=== PATIENT | female | born 1985 | race Caucasian/White ===

== ENCOUNTER 2017-10-05 06:27 | Day surgery (SDC) | payer BC ==
[2017-10-05 07:20] VITALS: BP 108/69; TEMP 98.2; BMI 34.0
[2017-10-05 08:33] LABS: FFN Internal QC Analyzer PASS (PASS); FFN Internal QC Cassette PASS (PASS); Fetal Fibronectin Negative (Negative)
--- NOTE | 2017-10-05 11:23 | PRG ---
DATE OF SERVICE: 10/05/2017 PRIMARY OB: Dr. Fabiola Medina. CHIEF COMPLAINT: Abdominal pains. HISTORY OF PRESENT ILLNESS: The patient is a 32-year-old G4, P2 female with an intrauterine pregnanc y of a di/di twin gestation at 28 weeks and 6 days. The patient presented to Labor and Delivery afte r waking up with what she believes are uterine contractions that seemed to intensify little bit into the morning. She began feeling them about every 3 minutes and came for further evaluation. The dae ent reports since arriving to Labor and Delivery, her contractions seem to have abated, and she is no t noticing them like before. The patient denies any recent illness, fever, fall, headache, chest carter n, shortness of breath, nausea, vomiting, diarrhea, constipation, any new rashes. She denies a gillette e in discharge, urinary urgency, or frequency. PAST MEDICAL HISTORY: Negative. PAST SURGICAL HISTORY: She has had wisdom teeth. She has had ankle surgery. She has had a correcti on on a KENALOG reaction. ALLERGIES: KENALOG and ERYTHROMYCIN. CURRENT MEDICATIONS: vitamins, iron, and calcium. SOCIAL HISTORY: Denies drug, alcohol, or tobacco use. OBSTETRIC HISTORY: She has had 2 term deliveries and 1 miscarriage. OB LABS: RPR nonreactive, hepatitis B surface antigen nonreactive, HIV nonreactive. GC chlamydia, r ubella is immune. Her 3-hour glucose tolerance test fasting was 86, one-hour is 156, two-hour is 158 , three-hour is 108. REVIEW OF SYSTEMS: Per HPI. PHYSICAL EXAMINATION: VITAL SIGNS: Blood pressure is 108/69, heart rate of 104, respiratory rate of 18, satting 97% on vargas m air, and temperature 98.2. GENERAL: She appears to be in no acute distress. She is alert and oriented, and cooperative and ple asant to interact with. HEAD: Normocephalic, atraumatic. LUNGS: Clear to auscultation bilaterally. HEART: Regular rate and rhythm. ABDOMEN: Soft, gravid, nontender to palpation. No suprapubic tenderness. No upper quadrant tendern ess. She has no CVA tenderness. EXTREMITIES: Nontender, nonedematous. GENITOURINARY: Exam has been deferred at this time. heart tracing performed for abdominal pain, interpreted by Dr. Pulido, duration is approximate ly 2 hours, baseline for baby A is noted to be 130s with moderate long-term variability, positive acc elerations, no decelerations, and baby B was noted to be in the 130s with moderate long-term variabil ity, positive accelerations. The tocometer does show irritability and contractions early on, appears to be about every 2-5 minutes with a lot of irritability, and toward the end of her stay, her spacin g out was about every 10 minutes, again not felt nearly as intense or frequent as she has been experi encing. fibronectin test was collected and found to be negative. ASSESSMENT AND PLAN: The patient is a 32-year-old female with an intrauterine of a twin ge station at [address] Medina, her primary OB, has instituted outpatient steroids with her first dose given yesterday, second dose due this morning. The patient has a negative fibro nectin, has reassuring heart tracing for both babies and is getting close followup. Given the overall picture and her much reduced risk of labor in the next couple of weeks, the patient has been discharged home with instructions to return if her contractions intensify. She has been counseled to keep her appointment with Dr. Medina as scheduled.
== END 2017-10-05 09:45 | disposition home or self-care (01) ==
LOC: L&D/OP 06:27
PROVIDERS: ATTEND Family Medicine
DX: O47.03 False labor before 37 completed weeks of gestation, third trimester (principal); O30.003 Twin pregnancy, unspecified number of placenta and unspecified number of amniotic sacs, third trimester; Z3A.28 28 weeks gestation of pregnancy; Z98.890 Other specified postprocedural states; Z79.899 Other long term (current) drug therapy; Z88.1 Allergy status to other antibiotic agents; Z88.8 Allergy status to other drugs, medicaments and biological substances
CPT/HCPCS: 82731

== ENCOUNTER 2017-11-29 11:03 | Day surgery (SDC) | payer BC ==
[2017-11-29 11:42] VITALS: BMI 36.1
[2017-11-29 11:43] VITALS: BP 118/66; TEMP 99.7
== END 2017-11-29 13:25 | disposition home or self-care (01) ==
LOC: L&D/OP 11:03
PROVIDERS: ATTEND Family Medicine
DX: Z36.89 Encounter for other specified antenatal screening (principal); Z88.1 Allergy status to other antibiotic agents; Z79.899 Other long term (current) drug therapy
CPT/HCPCS: 59025; 99282

== ENCOUNTER 2017-12-01 05:36 | Inpatient (IN) | payer BC, OTHER ==
[2017-12-01] MEDS ORDERED: CEFAZOLIN/Water 2 GM/20 ML SYRINGE SLOW IVP SCH (05:59)
[2017-12-01] MEDS ORDERED: Promethazine HCl 25 MG/ML VIAL IM PRN (05:59)
[2017-12-01] MEDS ORDERED: Bicitra 30 ML UDCUP PO SCH (05:59)
[2017-12-01 06:30] VITALS: BMI 36.1
[2017-12-01] MEDS: Lactated Ringer's 1,000 ML IV SCH ×4 (06:31→23:54)
[2017-12-01 06:49] LABS: Hemoglobin 13.1 g/dL (12.0-16.0); Mean Corpuscular HGB CONC 34.4 g/dL (32.0-36.0); Mean Corpuscular Hemoglobin 32.4 pg (27.0-31.0); Mean Corpuscular Volume 94.2 fl (81.0-99.0); Mean Platelet Volume 7.6 fL (7.4-10.4); Platelet Count 193 thou/uL (130-400); RBC Distribution Width 17.3 % (11.5-14.5); Red Blood Cell (RBC) Count 4.03 mill/uL (4.20-5.40); White Blood Cell (WBC) Count 8.8 thou/uL (4.8-10.8)
[2017-12-01] MEDS ORDERED: ePHEDrine/0.9% NaCl/PF SYRINGE 50 mg/10 ml ONE (07:18)
[2017-12-01] MEDS ORDERED: Ketorolac Tromethamine 30 MG/ML VIAL ONE (07:18)
[2017-12-01] MEDS ORDERED: Ondansetron HCl/PF 4 MG/2 ML Vial ONE (07:18)
[2017-12-01] MEDS ORDERED: Dexamethasone 4 mg/ml Vial ONE (07:18)
[2017-12-01] MEDS ORDERED: PHENYLEPHRINE-NS 100 MCG/ML 10 ML SYRINGE ONE (07:18)
[2017-12-01] MEDS ORDERED: Morphine PF 1 MG/ML SYR ONE (07:18)
[2017-12-01] MEDS ORDERED: Oxytocin 10 UNITS/ML VIAL ONE (07:18)
[2017-12-01 07:29] LABS: HBSAg Index 0.19 S/CO (0-0.99); Hep B Surf Ag Non-Reactive S/CO (NonReactive); Syphilis Antibody Nonreactive (Nonreactive); Syphilis Antibody Index 0.04 S/CO (<1.00 Non-Reactive)
[2017-12-01] MEDS ORDERED: LR / Pitocin 40 units/1000 ml 1,000 ML IV PRN (07:46)
[2017-12-01] MEDS ORDERED: Acetaminophen/Codeine 30-300mg Tablet PO PRN (07:46)
[2017-12-01] MEDS ORDERED: HYDROcodone/Acetaminophen 5/325 mg Tablet PO PRN (07:46)
[2017-12-01] MEDS ORDERED: Ibuprofen 800 MG TAB PO PRN (07:46)
[2017-12-01] MEDS ORDERED: Lidocaine 1% (PF) 30 ML VIAL SC PRN (07:46)
[2017-12-01] MEDS ORDERED: LR 500 ML/Oxytocin 10 units 500 ML IV SCH (08:00)
[2017-12-01] MEDS ORDERED: Penicillin G Potassium 5 MILL.UNITS in Sodium Chloride 0.9% 100 ML IVPB SCH (08:00)
[2017-12-01] MEDS: LR 500 ML/Oxytocin 10 units 500 ML IV SCH ×2 (09:28→22:11)
[2017-12-01] MEDS: Penicillin G 2.5 MILL.units 2.5 MILL.UNITS in Premix Bag 1 BAG IVPB SCH ×3 (12:45→21:10)
[2017-12-01] MEDS ORDERED: DISCONTINUE ALL PREVIOUS NARCOTICS FS SCH (16:30)
[2017-12-01] MEDS: Bupivacaine 0.5% 20 ML, Fentanyl 400 MCG in Sodium Chloride 0.9% 72 ML EPIDURAL SCH (18:42)
[2017-12-01] MEDS ORDERED: Naloxone HCl 0.4 mg/ml Vial IVP PRN (18:52)
[2017-12-01] MEDS ORDERED: Lactated Ringer's 500 ML IV PRN (18:52)
[2017-12-01] MEDS ORDERED: ePHEDrine/0.9% NaCl/PF SYRINGE 50 mg/10 ml SLOW IVP PRN (18:52)
[2017-12-01] MEDS ORDERED: Eucerin (Mineral Oil/Petrolatum,White) 30 gm Jar TOP PRN (18:52)
[2017-12-01] MEDS ORDERED: Acetaminophen 325 MG TAB PO PRN (18:52)
[2017-12-01] MEDS ORDERED: Communication Order-Pharmacy FS SCH (19:00)
[2017-12-01] MEDS ORDERED: Fentanyl 4mcg/Marcaine 0.1% Cassette 100 ML EPIDURAL SCH (19:00)
[2017-12-01] MEDS: Ondansetron HCl/PF 4 MG/2 ML Vial IVP PRN (21:27)
[2017-12-02] MEDS: Bupivacaine 0.5% 20 ML, Fentanyl 400 MCG in Sodium Chloride 0.9% 72 ML EPIDURAL SCH (00:20)
[2017-12-02] MEDS ORDERED: LR / Pitocin 40 units/1000 ml 1,000 ML ONE (00:59)
--- NOTE | 2017-12-02 01:02 | PDOC.EVN ---
Event Note - Event Note Event Note: @2220: Delivery Assist for sono confirmation of Twin B Called to OR in L&D as the patient and Dr Nicole were awaiting Twin A delivery. I was requested to place sono on mother after Twin A to assess twin B position. of Twin A at approx 0027, vigorous male...Cephalic by Dr Everardo Nicole. I placed a sono on mother's abdomen and confirmed twin B was cephalic. I was present in room until Twin B delivered via at approx 0054...vigorous male. AROM by Dr Nicole just prior to . I left the OR as all were stable, with Dr Nicole present, awaiting placental delivery. No complications with deliveries of the two male newborns. NICU in room.
[2017-12-02] MEDS: Ondansetron HCl/PF 4 MG/2 ML Vial IVP PRN (01:25)
[2017-12-02] MEDS: Penicillin G 2.5 MILL.units 2.5 MILL.UNITS in Premix Bag 1 BAG IVPB SCH (01:28)
[2017-12-02] MEDS ORDERED: LR / Pitocin 40 units/1000 ml 1,000 ML IV SCH (01:40)
[2017-12-02] MEDS ORDERED: Benzocaine/Menthol 20-0.5% 60 ML CAN TOP PRN (01:40)
[2017-12-02] MEDS ORDERED: traMADol HCl 50 MG TAB PO PRN (01:40)
[2017-12-02] MEDS ORDERED: Milk Of Magnesia 30 ML UDCUP PO PRN (01:40)
[2017-12-02] MEDS ORDERED: Lanolin Ointment 7 GM TUBE TOP PRN (01:40)
[2017-12-02] MEDS ORDERED: HYDROcodone/Acetaminophen 5/325 mg Tablet PO PRN (01:40)
[2017-12-02] MEDS ORDERED: Preparation H Ointment 28 GM TUBE PR PRN (01:40)
[2017-12-02] MEDS ORDERED: Acetaminophen/Codeine 30-300mg Tablet PO PRN (01:40)
[2017-12-02] MEDS ORDERED: Bisacodyl 10 MG SUPP PR PRN (01:40)
[2017-12-02] MEDS ORDERED: Ondansetron HCl/PF 4 MG/2 ML Vial IVP PRN (01:40)
[2017-12-02] MEDS ORDERED: diphenhydrAMINE 25 MG CAP PO PRN (01:40)
[2017-12-02] MEDS ORDERED: Misoprostol 200 MCG TAB ONE (01:41)
--- NOTE | 2017-12-02 01:52 | OP ---
DATE OF SURGERY: 12/02/2017 PREOPERATIVE DIAGNOSIS: A 37-week intrauterine with diamniotic-dichorionic twins. POSTOPERATIVE DIAGNOSES: A 37-week intrauterine with diamniotic-dichorionic twins, status post delivery. PROCEDURE: Normal spontaneous vaginal delivery. SURGEON: Dr. Fabiola Medina. ANESTHESIA: Epidural. COMPLICATIONS: No complications. Patient with epidural in place laboring without complications with Pitocin induction. Patient became complete, was taken to the operating room for planned vaginal delivery. PROCEDURE IN DETAIL: Patient was placed in the dorsal lithotomy position. Perineum was prepped and draped. Noted normal spontaneous vaginal delivery of a viable male from vertex presentation w ithout difficulty. Infant breathed and cried spontaneously. Cord was clamped and cut after approxim ately 1 minute noted that there was minimal bleeding. Cord blood was obtained and after approximatel y 20 minutes, artificial rupture of membranes for twin B with clear fluid. Noted normal spontaneous vaginal delivery of a viable male infant from vertex presentation. breathed and cried spontan eously. Cord was clamped and cut. After approximately 1 minute, baby was immediately placed on the abdomen for skin to skin and cord blood was obtained from the second-umbilical cord. A cord clamp wa s placed on the cord for baby A, and the placenta delivered spontaneously and appeared intact. There was minimal bleeding. There were no lacerations. Fundus was firm. Estimated blood loss 300 mL. B judy A and baby B noted viable; baby A, Apgars 8 at one minute, 9 at five minutes; baby B, Apgars 8 at one minute, 9 at five minutes taken to allow to room in with mom and patient taken to recovery.
[2017-12-02] MEDS ORDERED: Misoprostol 200 MCG TAB PR SCH (02:00)
[2017-12-02] MEDS: Ibuprofen 800 MG TAB PO SCH ×3 (05:14→21:21)
[2017-12-02 05:49] LABS: Hemoglobin 13.5 g/dL (12.0-16.0); Mean Corpuscular Hemoglobin 32.3 pg (27.0-31.0); Mean Corpuscular Volume 95.1 fl (81.0-99.0); Mean Platelet Volume 7.9 fL (7.4-10.4); Platelet Count 163 thou/uL (130-400); RBC Distribution Width 17.2 % (11.5-14.5); Red Blood Cell (RBC) Count 4.17 mill/uL (4.20-5.40); White Blood Cell (WBC) Count 12.5 thou/uL (4.8-10.8)
[2017-12-02] MEDS: Ferrous Sulfate 325 MG TAB PO SCH ×2 (08:46→16:38)
[2017-12-02] MEDS: Docusate Calcium (SURFAK) 240 MG CAP PO SCH ×2 (09:11→21:20)
[2017-12-02] MEDS: Prenatal Vitamin 1 TAB PO SCH (09:20)
[2017-12-03] MEDS: Ibuprofen 800 MG TAB PO SCH ×2 (05:52→13:39)
[2017-12-03 08:06] VITALS: BP 112/68; TEMP 98.3
[2017-12-03] MEDS: Docusate Calcium (SURFAK) 240 MG CAP PO SCH (09:16)
[2017-12-03] MEDS: Prenatal Vitamin 1 TAB PO SCH (09:18)
[2017-12-03] MEDS: Ferrous Sulfate 325 MG TAB PO SCH (09:19)
== END 2017-12-03 15:15 | disposition home or self-care (01) | DRG 775 ==
LOC: L&D 05:36 → 3SW 12-02 03:45
PROVIDERS: ADMIT Family Medicine; ATTEND Family Medicine
PROC: 3E033VJ Introduction of Other Hormone into Peripheral Vein, Percutaneous Approach (ICD-10-PCS; 2017-12-01)
PROC: 10E0XZZ Delivery of Products of Conception, External Approach (ICD-10-PCS; principal; 2017-12-02)
PROC: 10907ZC Drainage of Amniotic Fluid, Therapeutic from Products of Conception, Via Natural or Artificial Opening (ICD-10-PCS; 2017-12-02)
DX: O30.043 Twin pregnancy, dichorionic/diamniotic, third trimester (principal); Z37.2 Twins, both liveborn; Z3A.37 37 weeks gestation of pregnancy
CPT/HCPCS: 36415; 51701; 51702; 76815; 85027; 86780; 86850; 86900; 86901; 87340; 88307; J1100; J1885; J2274; J2405; J2540; J2590; J3010; J3490; J7050; J7120

== ENCOUNTER 2018-09-27 23:41 | Emergency (ER) | payer BC, OTHER ==
[2018-09-28] MEDS ORDERED: Ondansetron PF 4 MG/2 ML Vial ONE (00:17)
[2018-09-28] MEDS ORDERED: Famotidine 20 MG TAB ONE (00:17)
[2018-09-28 00:27] LABS: #Basophils 0.1 thou/uL (0.0-0.2); #Lymphocytes 2.9 thou/uL (1.20-3.40); #Monocytes 0.7 thou/uL (0.11-0.59); #Neutrophils 7.5 thou/uL (1.40-6.50); %Basophils 0.7 % (0.0-1.0); %Eosinophils 0.4 % (0.0-10.0); %Lymphocytes 25.8 % (21.0-51.0); %Monocytes 6.4 % (0.0-10.0); %Neutrophils 66.8 % (42.0-75.0); Hemoglobin 15.6 g/dL (12.0-16.0); Mean Corpuscular HGB CONC 33.9 g/dL (32.0-36.0); Mean Corpuscular Hemoglobin 30.6 pg (27.0-31.0); Mean Corpuscular Volume 90.3 fL (78.0-98.0); Platelet Count 247 thou/uL (130-400); Red Blood Cell (RBC) Count 5.08 mill/uL (4.20-5.40); White Blood Cell (WBC) Count 11.2 thou/uL (4.8-10.8)
[2018-09-28 00:30] LABS: BHCG - Serum Negative (NEGATIVE); Pregs Control Background? CLEAR/WHITE (CLR/WHITE); Pregs Control Bar Appear? YES (CONTROL BAR)
[2018-09-28 00:51] LABS: ALT (SGPT) 11 U/L (8-55); AST (SGOT) 13 U/L (5-34); Albumin 4.4 g/dL (3.5-5.0); Alkaline Phosphatase 62 U/L (40-150); Anion Gap 14 mmol/L (10-20); BUN (Urea Nitrogen) 17 mg/dL (7.0-18.7); Bilirubin, Total 0.4 mg/dL (0.2-1.2); Calc. Creatinine Clearance 0 mL/min (70-130); Calcium 9.9 mg/dL (7.8-10.44); Carbon Dioxide 25 mmol/L (22-29); Chloride 105 mmol/L (98-107); Estimated GFR-MDRD 81; Globulin 3.1 g/dL (2.4-3.5); Glucose 94 mg/dL (70-105); Lipase 21 U/L (8-78); Potassium 3.8 mmol/L (3.5-5.1); Protein, Total 7.5 g/dL (6.0-8.3); Sodium 140 mmol/L (136-145)
[2018-09-28] MEDS ORDERED: Morphine 4 MG/ML VIAL ONE (02:49)
[2018-09-28] MEDS ORDERED: Ketorolac Tromethamine 30 MG/ML VIAL ONE (03:07)
--- NOTE | 2018-09-28 08:38 | ULT ---
PRELIMINARY REPORT/[facility]/EMERGENTY AFTER-HOURS PROCEDURE US Abdomen Complete EXAM DATE/TIME: 09/28/2018 1:32 AM CLINICAL HISTORY: 33 years old, female; Pain and signs and symptoms; Nausea and vomiting; Abdominal pain; Localized; Ri ght upper quadrant (ruq) TECHNIQUE: Real-time ultrasound of the abdomen with image documentation. COMPARISON: No relevant prior studies available. FINDINGS: Liver: Mild hepatomegaly (right hepatic lobe 18 cm). Gallbladder: Echogenic, dependently layering material within the gallbladder, compatible with sludge. Echogenic, shadowing foci within the gallbladder, compatible with calcified gallstones. Gallbladder wall measures 3 mm in thickness. Common bile duct: Common bile duct measures 5 mm in diameter. Pancreas: Visualized pancreas is unremarkable. Right kidney: Right kidney is normal in appearance and measures 10.8 cm in length. IMPRESSION: 1. Cholelithiasis and gallbladder sludge, without acute cholecystitis. 2. Mild hepatomegaly. Thank you for allowing us to participate in the care of your patient. Dictated and Authenticated by: Trey Maradiaga MD 09/28/2018 2:38 AM Central Time ([place] & [place]) FINAL REPORT SONOGRAM RIGHT UPPER QUADARNT: DATE: 09/28/2018. TIME: Performed on an emergency basis at 0133 hours. HISTORY: Right upper quadrant pain. FINDINGS: Agree with the preliminary report by Dr. Maradiaga from [facility]. Cholelithiasis is confirmed. No evidence of acute biliary obstruction. POS: [facility]
== END 2018-09-28 05:46 | disposition home or self-care (01) ==
LOC: SCSER 23:41
DX: K80.50 Calculus of bile duct without cholangitis or cholecystitis without obstruction (principal); Z79.899 Other long term (current) drug therapy
CPT/HCPCS: 76705; 80053; 83690; 84703; 85025; 96361; 96374; 96375; J1885; J2270; J2405

== ENCOUNTER 2018-09-30 12:20 | Day surgery (SDC) | payer BC, OTHER ==
[2018-09-29 17:34] VITALS: BMI 30.7
[2018-09-30] MEDS ORDERED: Scopolamine 1.5 mg/72 hour Patch ONE (12:51)
[2018-09-30] MEDS ORDERED: Ketorolac Tromethamine 30 MG/ML VIAL ONE (12:51)
[2018-09-30] MEDS ORDERED: CEFAZOLIN 2 GM/50 ML BAG ONE (12:51)
[2018-09-30] MEDS ORDERED: Midazolam HCl 2 mg/2 ml Vial ONE (13:06)
[2018-09-30] MEDS ORDERED: Fentanyl 250 MCG/5 ML VIAL ONE (14:13)
[2018-09-30] MEDS ORDERED: Bupivacaine HCl 0.25%/Epi 0.0005/PF 10 ML VIAL FS ONE ×3 (14:14→14:23)
[2018-09-30] MEDS ORDERED: Iothalamate Meglumine 60% 50 ML VIAL FS ONE (14:18)
[2018-09-30] MEDS ORDERED: Bupivacaine HCl 0.5%/Epinephrine 1:200,000/PF 30 ml Vial ONE (14:22)
[2018-09-30] MEDS ORDERED: Fentanyl 100 MCG/2 ML VIAL ONE ×3 (14:27→17:35)
[2018-09-30] MEDS ORDERED: Dexamethasone 20 MG/5 ML VIAL ONE (16:13)
[2018-09-30] MEDS ORDERED: PHENYLEPHRINE-NS 100 MCG/ML 10 ML SYRINGE ONE (16:13)
[2018-09-30] MEDS ORDERED: PROPOFOL 200 MG/20 ML VIAL ONE (16:13)
[2018-09-30] MEDS ORDERED: Lidocaine 1% PF 5 ML VIAL ONE (16:13)
[2018-09-30] MEDS ORDERED: Rocuronium Bromide 10 MG/ML (10ML VIAL) ONE (16:13)
[2018-09-30] MEDS ORDERED: Metoclopramide HCl 10 MG/2 ML VIAL ONE (16:13)
[2018-09-30] MEDS ORDERED: Ondansetron PF 4 MG/2 ML Vial ONE (16:13)
[2018-09-30] MEDS ORDERED: Glycopyrrolate 0.2 MG/ML 5 ML SYRINGE ONE (16:13)
--- NOTE | 2018-09-30 16:38 | RAD ---
INTRAOPERATIVE CHOLANGIOGRAM: 09/30/18 INDICATION: Cholecystectomy. FLUOROSCOPIC TIME: 34 seconds with total exposure of 4.32 mGy. IMAGES: Three fluoroscopic spot images were submitted from an intraoperative cholangiogram. FINDINGS: The submitted images demonstrate canalization of the cystic duct remnant. There is antegrade opacific ation through the cystic duct and contrast flows into the intrahepatic and extrahepatic biliary duct. No visible filling defect is evident. Contrast spillage is seen within the duodenum. IMPRESSION: No filling defect seen within the common bile duct to suggest choledocholithiasis. POS: [facility]
[2018-09-30] MEDS ORDERED: Promethazine HCl 25 MG/ML VIAL ONE (16:47)
[2018-09-30] MEDS ORDERED: HYDROcodone/Acetaminophen 5/325 mg Tablet ONE (18:44)
--- NOTE | 2018-09-30 19:15 | RAD ---
KUB 09/30/18 PROVIDED CLINICAL HISTORY: Postop. FINDINGS: The abdominal bowel gas pattern is nonspecific. Cholecystectomy clips are seen in the right upper shonda drant. The supine nature of the examination is not sensitive for detection of pneumoperitoneum. IMPRESSION: Nonspecific bowel gas pattern. POS: [facility]
--- NOTE | 2018-10-01 21:00 | OP ---
DATE OF PROCEDURE: 09/30/2018 PREOPERATIVE DIAGNOSIS: Symptomatic cholelithiasis. POSTOPERATIVE DIAGNOSES: Cholelithiasis with gallbladder hydrops and impacted cystic duct stone and umbilical hernia. OPERATION PERFORMED: Laparoscopic cholecystectomy with intraoperative cholangiogram, bile duct exploration with impacted cystic duct stone extraction, umbilical hernia repair. ANESTHESIA: General endotracheal. INDICATIONS: The patient is a 33-year-old white female. She presents with symptoms referable to her gallbladder and ultrasound proven cholelithiasis. Her liver function tests were normal. She was taken to the operating at this time for laparoscopic cholecystectomy. DESCRIPTION OF OPERATION: Informed consent was obtained. The patient was taken to the operating room where general endotracheal anesthesia was obtained with the patient in supine position. Abdomen was prepped with ChloraPrep and draped in sterile fashion. Local anesthetic was infiltrated and a 5 mm right upper quadrant incision was created through which a Veress needle was passed in the peritoneal cavity. Pneumoperitoneum was established using carbon dioxide up to pressure of 15 mmHg. A 5 mm trocar port was passed through the same incision. Laparoscopic camera was passed this port. Under direct vision, the umbilicus was inspected and there was noted to be an umbilical hernia. She had been concerned about this, but it was difficult to palpate preoperatively. An 11 mm infraumbilical incision was created and an 11 mm port was passed through this incision and through the umbilical hernia defect. The camera was replaced to this port. Two additional 5 mm right upper quadrant ports were placed. Attention was then turned to the gallbladder. This is noted to be grossly distended. It could not be grasped. It was therefore decompressed using a decompression needle. It appeared that the gallbladder contents were mucoid, consistent with gallbladder hydrops. After it was adequately decompressed, the gallbladder was grasped and retracted in a cephalad direction. Infundibulum was grasped and retracted laterally and inferiorly. There was substantial inflammatory change at the apex of the gallbladder. With careful dissection, I was able to dissect the cystic artery and divided this between clips leaving 2 on the side to remain within the abdomen. The duct appeared to be distended and/or dilated. I clipped this proximally and made a ductotomy. I attempted to perform a cholangiogram, however, the contrast spilled retrograde back into the abdomen as there was obviously some obstruction. I could make out some of the contrast going past the obstruction and could see the common bile duct. I returned my attention to the cystic duct. I dissected down along this until I dissected the confluence of the cystic duct with the common bile duct. I attempted to pass a catheter through the cystic duct past the obstructing stone, but could not. I therefore utilized the [place] dissector to carefully milk the obstructing stone retrograde from its position in the distal cystic duct back to the ductotomy opening. A bosselated yellow gallstone measuring about 6 mm in size was expressed through this opening and retrieved. Cholangiogram was attempted again with the cystic duct stone removed with successful revealing normal biliary anatomy. The duct was doubly clipped but due to its dilatation, this did not feel it. I therefore also used a PDS endo-loop. The duct was then divided. The gallbladder was dissected out of the gallbladder fossa using electrocautery and removed through the umbilical port. The umbilical defect was closed using a [id number] suture of 0 Vicryl placed with GraNee needle. The right upper quadrant was thoroughly irrigated. All irrigant was aspirated. All ports and instruments were removed under direct vision. Pneumoperitoneum was carefully evacuated. 0.25% Marcaine with epinephrine was infiltrated at each port site. Skin edges approximated with 4-0 Monocryl subcuticular suture. Dermabond was placed externally. There were no complications. The patient tolerated the procedure well and was taken to recovery room in stable condition. Job ID: [id number]
== END 2018-09-30 19:15 | disposition home or self-care (01) ==
LOC: SDC 12:20
PROVIDERS: ATTEND Specialist
PROC: 0FT44ZZ Resection of Gallbladder, Percutaneous Endoscopic Approach (ICD-10-PCS; principal; 2018-09-30)
PROC: BF10YZZ Fluoroscopy of Bile Ducts using Other Contrast (ICD-10-PCS; principal; 2018-09-30)
PROC: 0FC94ZZ Extirpation of Matter from Common Bile Duct, Percutaneous Endoscopic Approach (ICD-10-PCS; principal; 2018-09-30)
DX: K80.12 Calculus of gallbladder with acute and chronic cholecystitis without obstruction (principal); K42.9 Umbilical hernia without obstruction or gangrene; Z88.8 Allergy status to other drugs, medicaments and biological substances; Z88.1 Allergy status to other antibiotic agents; Z79.899 Other long term (current) drug therapy; Z98.890 Other specified postprocedural states
CPT/HCPCS: 47532; 74018; 88304; J0131; J0670; J1100; J1885; J2001; J2250; J2405; J2550; J2704; J2765; J3010; Q9961